=== PATIENT | female | born 1960 | race Caucasian/White ===

== ENCOUNTER 2017-07-05 15:06 | Emergency (ER) | payer BC ==
[~2017-07-05] VITALS: Ht 170.2 cm; Wt 87.9 kg
[2017-07-05 15:09] VITALS: TEMP 36.7; Ht 170.2 cm; Wt 87.9 kg
[2017-07-05] MEDS ORDERED: SODIUM CHLORIDE 0.9% 1000ML 1,000 ML IV STA (15:24)
--- NOTE | 2017-07-05 15:39 | DIAGNOSTIC IMAGING REPORT ---
CHEST ONE VIEW PORTABLE CLINICAL HISTORY: Altered mental status. Weakness. COMPARISON STUDY: No previous studies for comparison. FINDINGS: The cardiac and mediastinal contours are normal. There is no evidence of focal pulmonary consolidation. There is no evidence of failure. No pleural effusions are visualized.[ IMPRESSION: No active disease in the chest. Electronically signed by: Constantine Al M.D. 07/05/2017 3:38 PM Dictated Date/Time: 07/05/2017 3:38 PM
--- NOTE | 2017-07-05 16:08 | DIAGNOSTIC IMAGING REPORT ---
HEAD WITHOUT CONTRAST (CT) CT DOSE: 638.56 mGycm HISTORY: Mental status change EVALUATE ALTERED MENTAL STATUS/WEAKNESS TECHNIQUE: Multiaxial CT images of the head were performed without the use of intravenous contrast. A dose lowering technique was utilized adhering to the principles of ALARA. Comparison: None. Findings: The paranasal sinuses and mastoid air cells are clear. The calvarium and skull base are intact. The ventricles and sulci are within normal limits. There is no mass, hematoma, midline shift, or acute infarct. Impression: No acute intracranial abnormality. The above report was generated using voice recognition software. It may contain grammatical, syntax or spelling errors. Electronically signed by: Uday Salmon M.D. 07/05/2017 4:07 PM Dictated Date/Time: 07/05/2017 4:06 PM
[2017-07-05 16:09] LABS: PARTIAL THROMBOPLASTIN RATIO 0.9; PROTHROMBIN TIME (PATIENT) 10.4 SECONDS (9.0-12.0)
[2017-07-05 16:21] LABS: ALT/SGPT 24 U/L (12-78); AST/SGOT 17 U/L (15-37); BLOOD UREA NITROGEN 13 mg/dl (7-18); BUN/CREATININE RATIO 15.7 (10-20); CALCIUM 9.1 mg/dl (8.5-10.1); CARBON DIOXIDE 29 mmol/L (21-32); CHLORIDE 106 mmol/L (98-107); CREATININE 0.81 mg/dl (0.60-1.20); GLUCOSE 109 mg/dl (70-99); MAGNESIUM 2.3 mg/dl (1.8-2.4); POTASSIUM 3.8 mmol/L (3.5-5.1); SODIUM 140 mmol/L (136-145)
[2017-07-05 16:25] LABS: BASO % 0.6 %; BASO ABS # 0.03 K/uL (0-0.2); COMPLETE YES; EOS % 1.3 %; HEMATOCRIT 38.9 % (37-47); IG% 0.2 %; LYMPH % 37.1 %; LYMPH ABS # 1.77 K/uL (1.2-3.4); MEAN CELL VOLUME 90.7 fL (80-100); MEAN CORPUSCULAR HEMOGLOBIN 29.4 pg (25-34); MEAN CORPUSCULAR HGB CONC 32.4 g/dl (32-36); MEAN PLATELET VOLUME 9.6 fL (7.4-10.4); NEUT % 51.8 %; PLATELET COUNT 260 K/uL (130-400); RED BLOOD COUNT 4.29 M/uL (4.2-5.4); WHITE BLOOD COUNT 4.77 K/uL (4.8-10.8)
[2017-07-05 16:30] LABS: ALKALINE PHOSPHATASE 61 U/L (45-117); CKMB/CK RATIO 1.8 (0-3.0); THYROID STIMULATING HORMONE 0.972 uIu/ml (0.300-4.500)
--- NOTE | 2017-07-05 17:00 | DIAGNOSTIC IMAGING REPORT ---
ULTRASOUND OF THE CAROTID ARTERIES CLINICAL HISTORY: dizziness with turning head COMPARISON STUDY: None. TECHNIQUE: Real-time, grayscale, and color Doppler sonography of the carotid arteries was performed. Imaging reviewed in the transverse and longitudinal planes. NASCET criteria was utilized for stenosis calcification. FINDINGS: There is minimal atherosclerotic plaque present . The peak systolic velocity within the right internal carotid artery is 79 cm/sec. The systolic velocity ratio of right internal to common carotid artery is 1.2. The peak systolic velocity within the left internal carotid artery is 74 cm/sec. The systolic velocity ratio left internal to common carotid artery is 0.9. Antegrade flow is seen in the vertebral arteries. The external carotid arteries are patent. Blood pressure in the right arm measured 127 mm/Hg. Blood pressure in the left arm measured 144 mm/Hg. IMPRESSION: No evidence of hemodynamically significant carotid stenosis. Antegrade flow within both vertebral arteries. Electronically signed by: Constantine Al M.D. 07/05/2017 4:59 PM Dictated Date/Time: 07/05/2017 4:58 PM
[2017-07-05] MEDS ORDERED: FURO-85 PO (17:37)
[2017-07-05] MEDS ORDERED: CHOL2000 PO (17:37)
[2017-07-05] MEDS ORDERED: LEVO50TA6 PO (17:37)
[2017-07-05] MEDS ORDERED: LOSA50TA6 PO (17:37)
[2017-07-05 17:48] VITALS: BP 130/82; PULSE 75; O2SAT 99
--- NOTE | 2017-07-05 18:33 | EMERGENCY ROOM VISIT NOTE ---
History Report prepared by [place]: Pablo Carter Under the Supervision of: Dr. Rob Sanz D.O. First contact with patient: 15:24 Chief Complaint: DIZZY Stated Complaint: DIZZY INCREASING OVER 2 WEEKS - EYE SIGHT CHANGED Nursing Triage Summary: "Over the past couple of weeks I have been getting dizzy when I turn my head and it seems to be getting worse. I also have some vision changes, my eyes seem unfocused and feel like they are crossed. The vision changes happen when I turn my head side to side along with the dizziness. If I am just looking straight, there is no dizziness/no visual changes. Also, two weeks ago, I had some pain in my left ear when all these symptoms started, though that ear pain is gone now." History of Present Illness The patient is a 56 year old female who presents to the Emergency Room with complaints of worsening dizziness for the past couple of weeks. The dizziness is worsened with turning her head, and it is more when she turns to the left. She additionally states that she feels like her eyes are crossed, though they are not, and she cannot focus very well. She said a couple of weeks ago she had a severe sharp pain in her left ear for 15 minutes, and this was before these current symptoms started. She states that she has mild hypertension which in controlled with medication. She additionally has a history of a thyroidectomy. The patient's states that she had some walking difficulties, though usually she has been okay. Source of History: patient Onset: a couple weeks ago Position: other (global) Quality: other (dizziness) Timing: worsening Note: Associated symptoms: Feels like eyes are crossed and out of focus. Review of Systems See HPI for pertinent positives & negatives. A total of 10 systems reviewed and were otherwise negative. Past Medical & Surgical Medical Problems: (1) HTN (hypertension) Surgical Problems: (1) H/O thyroidectomy Social History Smoking Status: Former Smoker Marital Status: Housing Status: lives with family Occupation Status: unemployed Current/Historical Medications Scheduled Cholecalciferol (Vitamin D3), 1 CAP PO DAILY Furosemide (Lasix), 20 MG PO DAILY Levothyroxine Sodium (Levothyroxine Sodium), 1 TAB PO DAILY Losartan Potassium (Cozaar), 50 MG PO DAILY Allergies Coded Allergies: Sulfa Antibiotics (Unverified Allergy, Severe, RASH, 07/05/17) Physical Exam Vital Signs Date Time Temp Pulse Resp B/P (MAP) Pulse Ox O2 Delivery O2 Flow Rate FiO2 07/05/17 17:27 78 07/05/17 17:00 74 18 123/85 99 Room Air 07/05/17 15:09 36.7 84 18 145/89 97 Room Air Physical Exam VITAL SIGNS: were reviewed as above. GENERAL:Non-toxic in appearance. SKIN: Warm dry and pink. HEAD: Normocephalic and atraumatic. OROPHARYNX: Is clear and moist NECK: Supple without lymphadenopathy or meningismus. LUNGS: clear. HEART: Regular rate and rhythm. ABDOMEN: Soft and nontender. EXTREMITIES: Warm and well perfused. NEUROLOGICALLY: Awake alert and oriented without focal deficit. Cranial nerves 2 -12 are intact. There is no pronator drift. Cerebellar testing is within normal limits. There is no nystagmus. There is no facial droop. Speech is clear. Vision is grossly normal. MUSCULOSKELETAL: Good muscle tone. No evidence of trauma. Medical Decision & Procedures ER Provider Diagnostic Interpretation: Radiology results as stated below per my review and radiologist interpretation: HEAD WITHOUT CONTRAST (CT) CT DOSE: 638.56 mGycm HISTORY: Mental status change EVALUATE ALTERED MENTAL STATUS/WEAKNESS TECHNIQUE: Multiaxial CT images of the head were performed without the use of intravenous contrast. A dose lowering technique was utilized adhering to the principles of ALARA. Comparison: None. Findings: The paranasal sinuses and mastoid air cells are clear. The calvarium and skull base are intact. The ventricles and sulci are within normal limits. There is no mass, hematoma, midline shift, or acute infarct. Impression: No acute intracranial abnormality. CHEST ONE VIEW PORTABLE CLINICAL HISTORY: Altered mental status. Weakness. COMPARISON STUDY: No previous studies for comparison. FINDINGS: The cardiac and mediastinal contours are normal. There is no evidence of focal pulmonary consolidation. There is no evidence of failure. No pleural effusions are visualized.[ IMPRESSION: No active disease in the chest. Electronically signed by: Constantine Al M.D. 07/05/2017 3:38 PM Dictated Date/Time: 07/05/2017 3:38 PM ULTRASOUND OF THE CAROTID ARTERIES CLINICAL HISTORY: dizziness with turning head COMPARISON STUDY: None. TECHNIQUE: Real-time, grayscale, and color Doppler sonography of the carotid arteries was performed. Imaging reviewed in the transverse and longitudinal planes. NASCET criteria was utilized for stenosis calcification. FINDINGS: There is minimal atherosclerotic plaque present . The peak systolic velocity within the right internal carotid artery is 79 cm/sec. The systolic velocity ratio of right internal to common carotid artery is 1.2. The peak systolic velocity within the left internal carotid artery is 74 cm/sec. The systolic velocity ratio left internal to common carotid artery is 0.9. Antegrade flow is seen in the vertebral arteries. The external carotid arteries are patent. Blood pressure in the right arm measured 127 mm/Hg. Blood pressure in the left arm measured 144 mm/Hg. IMPRESSION: No evidence of hemodynamically significant carotid stenosis. Antegrade flow within both vertebral arteries. Electronically signed by: Constantine Al M.D. 07/05/2017 4:59 PM Dictated Date/Time: 07/05/2017 4:58 PM Laboratory Results 07/05/17 15:49 Red Blood Count 4.29, Mean Corpuscular Volume 90.7, Mean Corpuscular Hemoglobin 29.4, Mean Corpuscular Hemoglobin Concent 32.4, Mean Platelet Volume 9.6, Neutrophils (%) (Auto) 51.8, Lymphocytes (%) (Auto) 37.1, Monocytes (%) (Auto) 9.0, Eosinophils (%) (Auto) 1.3, Basophils (%) (Auto) 0.6, Neutrophils # (Auto) 2.47, Lymphocytes # (Auto) 1.77, Monocytes # (Auto) 0.43, Eosinophils # (Auto) 0.06, Basophils # (Auto) 0.03 07/05/17 15:49 Test 07/05/17 15:49 White Blood Count 4.77 K/uL (4.8-10.8) Red Blood Count 4.29 M/uL (4.2-5.4) Hemoglobin 12.6 g/dL (12.0-16.0) Hematocrit 38.9 % (37-47) Mean Corpuscular Volume 90.7 fL (80-100) Mean Corpuscular Hemoglobin 29.4 pg (25-34) Mean Corpuscular Hemoglobin Concent 32.4 g/dl (32-36) Platelet Count 260 K/uL (130-400) Mean Platelet Volume 9.6 fL (7.4-10.4) Neutrophils (%) (Auto) 51.8 % Lymphocytes (%) (Auto) 37.1 % Monocytes (%) (Auto) 9.0 % Eosinophils (%) (Auto) 1.3 % Basophils (%) (Auto) 0.6 % Neutrophils # (Auto) 2.47 K/uL (1.4-6.5) Lymphocytes # (Auto) 1.77 K/uL (1.2-3.4) Monocytes # (Auto) 0.43 K/uL (0.11-0.59) Eosinophils # (Auto) 0.06 K/uL (0-0.5) Basophils # (Auto) 0.03 K/uL (0-0.2) RDW Standard Deviation 42.1 fL (36.4-46.3) RDW Coefficient of Variation 12.8 % (11.5-14.5) Immature Granulocyte % (Auto) 0.2 % Immature Granulocyte # (Auto) 0.01 K/uL (0.00-0.02) Prothrombin Time 10.4 SECONDS (9.0-12.0) Prothromb Time International Ratio 1.0 (0.9-1.1) Activated Partial Thromboplast Time 24.5 SECONDS (21.0-31.0) Partial Thromboplastin Ratio 0.9 Anion Gap 5.0 mmol/L (3-11) Est Creatinine Clear Calc Drug Dose 89.4 ml/min Estimated GFR () 94.8 Estimated GFR (Non- 81.8 BUN/Creatinine Ratio 15.7 (10-20) Calcium Level 9.1 mg/dl (8.5-10.1) Magnesium Level 2.3 mg/dl (1.8-2.4) Total Bilirubin 0.5 mg/dl (0.2-1) Direct Bilirubin 0.1 mg/dl (0-0.2) Aspartate Amino Transf (AST/SGOT) 17 U/L (15-37) Alanine Aminotransferase (ALT/SGPT) 24 U/L (12-78) Alkaline Phosphatase 61 U/L (45-117) Total Creatine Kinase 99 U/L (26-192) Creatine Kinase MB 1.8 ng/ml (0.5-3.6) Creatine Kinase MB Ratio 1.8 (0-3.0) Troponin I < 0.015 ng/ml (0-0.045) Total Protein 7.1 gm/dl (6.4-8.2) Albumin 3.9 gm/dl (3.4-5.0) Lipase 229 U/L (73-393) Thyroid Stimulating Hormone (TSH) 0.972 uIu/ml (0.300-4.500) Laboratory results as stated above per my review. Medications Administered Medications (Trade) Dose Ordered Sig/Ottoniel Route Start Time Stop Time Status Last Admin Dose Admin Sodium Chloride 1,000 ml @ 999 mls/hr Q1H1M STAT IV 07/05/17 15:24 07/05/17 16:24 DC 07/05/17 15:56 999 MLS/HR ECG Indication: other (dizziness) Rate (beats per minute): 73 Rhythm: normal sinus Findings: no ectopy, other (No acute injury) ED Course 1524: Previous medical records were reviewed. The patient was evaluated in room B6. A complete history and physical examination was performed. I ordered Sodium Chloride 1000 ml @ 999 mls/hr IV 1724: On reevaluation, the patient is feeling better. I discussed the results and findings with the patient. She verbalized agreement of the treatment plan. She was discharged home. Medical Decision Differential includes acute coronary syndrome, myocardial infarction, CVA, TIA, anemia, infection, pneumonia, UTI, pyelonephritis, poor nutrition, dehydration, electrolyte disturbance,hypoglycemia, carotid or vertebral artery occlusion/ dissection. This is a 56-year-old female who presents to the ED with a chief complaint of dizziness when turning her head for the past couple of weeks. The patient states that her dizziness is primarily that her eyes get out of focus. She states that at some point prior to the onset of these symptoms, she did have a pain in her left ear as if she had an ear infection. The patient denies any other significant symptoms. Her vital signs are stable. Her exam was normal and her neuro exam was normal as well. There was no abnormalities noted on evaluation of the tympanic membranes. Testing in included carotid ultrasounds that revealed minimal atherosclerotic plaque and antegrade flow in the vertebral arteries. Chest x-ray was negative for acute disease as well as a CT scan of the brain. CBC was normal, complete metabolic panel was normal, troponin was negative and a TSH was normal. The patient's symptoms seemed to have resolved, she states, after receiving normal saline here. The patient states that she is feeling better now. She is felt to be stable for discharge and outpatient follow-up. She was recommended to follow-up with her PCP if her symptoms persist or return. Medication Reconcilliation Current Medication List: was personally reviewed by me Blood Pressure Screening Patient's blood pressure: Elevated blood pressure Blood pressure disposition: Elevated BP felt to be situational Impression Primary Impression: Dizziness Additional Impression: Blurring of vision Scribe Attestation The scribe's documentation has been prepared under my direction and personally reviewed by me in its entirety. I confirm that the note above accurately reflects all work, treatment, procedures, and medical decision making performed by me. Departure Information Dispostion Home / Self-Care Referrals No Doctor, Assigned (PCP) Patient Instructions [facility] Additional Instructions Follow-up with your doctor for further care and evaluation next week. Return to the emergency department for worsening or new symptoms or any concerns. You have been examined and treated today on an emergency basis only. This is not a substitute for, or an effort to provide, complete comprehensive medical care. It is impossible to recognize and treat all injuries or illnesses in a single emergency department visit. It is therefore important that you follow up closely with your doctor. Call as soon as possible for an appointment. Problem Qualifiers
== END 2017-07-05 17:49 | disposition home or self-care (01) ==
LOC: C.EDB 15:07
DX: R42 Dizziness and giddiness (principal); H53.9 Unspecified visual disturbance; I10 Essential (primary) hypertension; Z79.899 Other long term (current) drug therapy; Z87.891 Personal history of nicotine dependence